=== PATIENT | female | born 1950 | race Asian ===

== ENCOUNTER → 2017-11-23 | Outpatient (CLI) | payer MEDICARE, OTHER ==
[~2017-11-23] VITALS: Ht 165.1 cm; Wt 51.0 kg
[~2017-11-23] MED LIST: ACET-784 PO; AMLO-511 PO; ASPI81TA39 PO; AUD NEB; BUME1TAB17 PO; DIPH25 PO; DSS100 PO; DULO30CA2 PO; EPOE10IM SQ; FERRHI IV; FURO20 PO; HYDR-4061 PO; HYDR10TA31 PO; INSLAN SQ; INSU100V SQ; KDUR20 PO; LIDOCAINE HCL 2% 5 ML JELLY TP ONE; LISI-661 PO; METO25 PO; PANT40TA25 PO; PREG25 PO; ROSU10 PO; SEVEC800 PO; SODI650T PO; VITAD1000 PO; ZARO5 PO
[2017-11-23 08:37] VITALS: BP 151/69
== END | disposition home or self-care (01) ==
LOC: HBOWC 07:35
PROVIDERS: ATTEND Podiatrist
DX: E11.621 Type 2 diabetes mellitus with foot ulcer (principal); L97.511 Non-pressure chronic ulcer of other part of right foot limited to breakdown of skin; I25.10 Atherosclerotic heart disease of native coronary artery without angina pectoris; J44.1 Chronic obstructive pulmonary disease with (acute) exacerbation; K21.9 Gastro-esophageal reflux disease without esophagitis; E11.22 Type 2 diabetes mellitus with diabetic chronic kidney disease; I13.0 Hypertensive heart and chronic kidney disease with heart failure and stage 1 through stage 4 chronic kidney disease, or unspecified chronic kidney disease; N18.3 Chronic kidney disease, stage 3 (moderate); I50.9 Heart failure, unspecified; I25.2 Old myocardial infarction; E78.00 Pure hypercholesterolemia, unspecified; E11.51 Type 2 diabetes mellitus with diabetic peripheral angiopathy without gangrene; I48.91 Unspecified atrial fibrillation; Z94.0 Kidney transplant status
CPT/HCPCS: 97597

== ENCOUNTER → 2017-11-30 | Outpatient (CLI) | payer MEDICARE, OTHER ==
[~2017-11-30] MED LIST changes: -FERRHI IV; -FURO20 PO; -KDUR20 PO; -LIDOCAINE HCL 2% 5 ML JELLY TP ONE; -SEVEC800 PO
[2017-11-30 10:10] VITALS: BP 147/75
== END | disposition home or self-care (01) ==
LOC: HBOWC 08:57
PROVIDERS: ATTEND Podiatrist
DX: E11.621 Type 2 diabetes mellitus with foot ulcer (principal); L97.511 Non-pressure chronic ulcer of other part of right foot limited to breakdown of skin; E78.00 Pure hypercholesterolemia, unspecified; F32.9 Major depressive disorder, single episode, unspecified; E11.22 Type 2 diabetes mellitus with diabetic chronic kidney disease; I13.0 Hypertensive heart and chronic kidney disease with heart failure and stage 1 through stage 4 chronic kidney disease, or unspecified chronic kidney disease; I50.9 Heart failure, unspecified; N18.3 Chronic kidney disease, stage 3 (moderate); I25.10 Atherosclerotic heart disease of native coronary artery without angina pectoris; J44.1 Chronic obstructive pulmonary disease with (acute) exacerbation; J44.0 Chronic obstructive pulmonary disease with (acute) lower respiratory infection; I48.91 Unspecified atrial fibrillation; K21.9 Gastro-esophageal reflux disease without esophagitis; E11.51 Type 2 diabetes mellitus with diabetic peripheral angiopathy without gangrene; I25.2 Old myocardial infarction; Z79.4 Long term (current) use of insulin; Z94.0 Kidney transplant status